=== PATIENT | female | born 1965 | race Caucasian/White ===

== ENCOUNTER → 2025-05-20 | Outpatient (CLI) | payer BC ==
[~2025-05-20] MED LIST: PROHANCE 279.3MG/ML 15ML VIAL ONE; PROHANCE 279.3MG/ML 5ML VIAL ONE
== END ==
LOC: M PLAIMG 07:49
PROVIDERS: ATTEND Physical Medicine & Rehabilitation
DX: M54.42 Lumbago with sciatica, left side (principal); M47.816 Spondylosis without myelopathy or radiculopathy, lumbar region; M47.817 Spondylosis without myelopathy or radiculopathy, lumbosacral region; M51.26 Other intervertebral disc displacement, lumbar region
CPT/HCPCS: 72158; A9576

== ENCOUNTER → 2025-08-23 | Outpatient (CLI) | payer BC | LOC: M WUC 14:17 | PROVIDERS: ATTEND Student in an Organized Health Care Education/Training Program | DX: M17.12 Unilateral primary osteoarthritis, left knee (principal); M51.369 Other intervertebral disc degeneration, lumbar region without mention of lumbar back pain or lower extremity pain; M25.562 Pain in left knee; M54.16 Radiculopathy, lumbar region ==

== ENCOUNTER 2025-11-02 08:30 | Outpatient (RCR) | payer BC | END 2025-11-03 | LOC: M PT 08:30 | PROVIDERS: ATTEND Student in an Organized Health Care Education/Training Program | DX: M54.16 Radiculopathy, lumbar region (principal) ==